=== PATIENT | female | born 1945 | race Caucasian/White ===

== ENCOUNTER 2019-12-10 12:42 | Inpatient (IN) | payer MEDICARE ==
[~2019-12-10] VITALS: Ht 165.1 cm; Wt 76.2 kg
--- NOTE | 2019-12-10 13:04 | NUR ---
PT BIB EMS FOR [facility]. PT HAS RIGHT TOTAL KNEE THIS AM W ABNORMAL EKG CHANGES, INVERTED T WAVE. PT DENIES CP OR SOB, NO COUGH. DENIES N/V. PT NOT IN RESP DISTRESS. PT RIGHT KNEE WRAPPED, ELEVATED, ICE APPLIED. UX DEVELOPER APPLIED. VSS, EKG DONE HX OF HTN AND ASTHMA,
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
[2019-12-10 14:05] LABS: BASOPHILS # (AUTO) 0.01 x10^3/uL (0-0.1); BASOPHILS % (AUTO) 0 % (0-1); EOSINOPHILS # (AUTO) 0.01 x10^3/uL (0-0.4); EOSINOPHILS % (AUTO) 0 % (1-7); LYMPHOCYTES # (AUTO) 0.36 x10^3/uL (1-3.4); LYMPHOCYTES % (AUTO) 5 % (22-44); MD NO; MEAN CORPUSCULAR HEMOGLOBIN 32.8 pg (27.0-34.8); MEAN CORPUSCULAR HGB CONC 33.8 g/dL (32.4-35.8); MEAN CORPUSCULAR VOLUME 97.2 fL (80-100); MEAN PLATELET VOLUME 7.7 fL (7.4-10.4); MONOCYTES # (AUTO) 0.11 x10^3/uL (0.2-0.8); MONOCYTES % (AUTO) 1 % (2-9); NEUTROPHILS # (AUTO) 7.29 x10^3/uL (1.8-6.8); NEUTROPHILS % (AUTO) 94 % (42-75); PLATELET COUNT 208 x10^3/uL (130-400); RED BLOOD COUNT 2.98 x10^6/uL (3.82-5.3); RED CELL DISTRIBUTION WIDTH 14.4 % (9.6-15.2)
[2019-12-10 14:12] LABS: CHLORIDE 108 mmol/L (98-107)
[2019-12-10 14:26] LABS: ANION GAP 6 mmol/L (5-15); CALCIUM 8.1 mg/dL (8.5-10.1); CREATININE 0.77 mg/dL (0.55-1.02)
[2019-12-10 14:29] LABS: TROPONIN I < 0.015 ng/mL (0.000-0.045)
[2019-12-10] MEDS ORDERED: OXYcodone/APAP 5/325MG TABLET ONE (15:48)
--- NOTE | 2019-12-10 15:51 | NUR ---
MEDICATED FOR PAIN, REPOSITIONED FOR COMFORT. VSS.
[2019-12-10] MEDS ORDERED: OXYcodone/APAP 5/325MG TABLET PO ONE (16:00)
[2019-12-10 17:34] VITALS: BP 130/79
[2019-12-10] MEDS ORDERED: POTA10TA5 PO (17:52)
[2019-12-10] MEDS ORDERED: METO50TA6 PO (17:58)
[2019-12-10] MEDS ORDERED: ALPR0.5T PO (17:58)
[2019-12-10] MEDS ORDERED: OMEP-110 PO (17:58)
[2019-12-10] MEDS ORDERED: MONT10TA11 PO (17:58)
[2019-12-10] MEDS ORDERED: SIMV10TA18 PO (17:58)
[2019-12-10] MEDS ORDERED: DICL-249 PO (17:58)
[2019-12-10] MEDS ORDERED: LORA10TA62 PO (17:58)
[2019-12-10] MEDS ORDERED: LOSA100T14 PO (17:58)
[2019-12-10] MEDS ORDERED: ESCI10TA PO (17:58)
[2019-12-10] MEDS ORDERED: ACETAMINOPHEN 325 MG TABLET PO PRN (18:30)
[2019-12-10 18:59] LABS: TROPONIN I < 0.015 ng/mL (0.000-0.045)
[2019-12-10] MEDS ORDERED: MAGNESIUM SULFATE PMX 4GM/100M 100 ML IV ONE (19:30)
[2019-12-10] MEDS ORDERED: SIMVASTATIN 10 MG TABLET PO SCH (21:00)
[2019-12-10] MEDS: DICLOFENAC SODIUM 75 MG TABLET.DR PO SCH (21:07)
[2019-12-10] MEDS: METOPROLOL TARTRATE 50 MG TAB PO SCH (21:07)
[2019-12-10] MEDS: POTASSIUM CHLORIDE 10 MEQ TABLET.ER PO SCH (21:07)
[2019-12-10] MEDS: morphine SULFATE 10 MG/ML, 1ML IVPush PRN (21:08)
[2019-12-10 21:25] VITALS: BP 149/53
[2019-12-11] MEDS: morphine SULFATE 10 MG/ML, 1ML IVPush PRN ×2 (00:52→06:15)
[2019-12-11 00:53] VITALS: BP 116/68
[2019-12-11 01:49] LABS: TROPONIN I < 0.015 ng/mL (0.000-0.045)
[2019-12-11 05:10] LABS: BASOPHILS % (AUTO) 0 % (0-1); EOSINOPHILS % (AUTO) 0 % (1-7); LYMPHOCYTES # (AUTO) 0.62 x10^3/uL (1-3.4); LYMPHOCYTES % (AUTO) 6 % (22-44); MD NO; MEAN CORPUSCULAR VOLUME 96.9 fL (80-100); MONOCYTES # (AUTO) 0.66 x10^3/uL (0.2-0.8); MONOCYTES % (AUTO) 6 % (2-9); NEUTROPHILS # (AUTO) 9.53 x10^3/uL (1.8-6.8); NEUTROPHILS % (AUTO) 88 % (42-75); PLATELET COUNT 193 x10^3/uL (130-400); RED BLOOD COUNT 2.78 x10^6/uL (3.82-5.3); RED CELL DISTRIBUTION WIDTH 14.1 % (9.6-15.2)
[2019-12-11 05:18] LABS: CHLORIDE 105 mmol/L (98-107)
[2019-12-11 05:31] LABS: ALANINE AMINOTRANSFERASE 21 U/L (12-78); ALBUMIN 2.8 g/dL (3.4-5.0); ALKALINE PHOSPHATASE 40 U/L (45-117); ANION GAP 8 mmol/L (5-15); BILIRUBIN,TOTAL 0.3 mg/dL (0.2-1.0); CALCIUM 8.1 mg/dL (8.5-10.1); CHOL/HDL RATIO 2.9; CHOLESTEROL, TOTAL 153 mg/dL (140-239); CREATININE 0.73 mg/dL (0.55-1.02); HDL CHOL % 35 % (28-40); HDL CHOLESTEROL (DIRECT) 53 mg/dL (40-60); LDL CHOLESTEROL,CALCULATED 81 mg/dL (54-169); LDL/HDL RATIO 1.5 (0.5-3.0); TOTAL PROTEIN 5.8 g/dL (6.4-8.2); TRIGLYCERIDES 94 mg/dL (50-200); VLDL CHOLESTEROL 19 mg/dL (0-25)
[2019-12-11] MEDS ORDERED: OMEPRAZOLE 20 MG CAPSULE.DR PO SCH (07:00)
[2019-12-11] MEDS ORDERED: REGADENOSON 0.4 MG/5 ML SYRINGE ONE (08:08)
[2019-12-11] MEDS ORDERED: ESCITALOPRAM 10MG TABLET PO SCH (09:00)
[2019-12-11] MEDS ORDERED: MONTELUKAST 10 MG TABLET PO SCH (09:00)
[2019-12-11] MEDS ORDERED: LOSARTAN 100 MG TAB PO SCH (09:00)
[2019-12-11] MEDS: METOPROLOL TARTRATE 50 MG TAB PO SCH (09:51)
[2019-12-11] MEDS: DICLOFENAC SODIUM 75 MG TABLET.DR PO SCH (09:51)
[2019-12-11] MEDS: POTASSIUM CHLORIDE 10 MEQ TABLET.ER PO SCH (09:52)
[2019-12-11 09:56] VITALS: BP 111/67
[2019-12-11] MEDS ORDERED: OXYcodone IR 5MG TABLET ONE (11:13)
[2019-12-11] MEDS ORDERED: OXYcodone 5 MG/5 ML ORAL.SOL UDC PO PRN (11:30)
[2019-12-11] MEDS ORDERED: ASPIRIN 81 MG TABLET CHEW PO SCH (11:30)
[2019-12-11] MEDS ORDERED: DOCUSATE 100 MG CAPSULE PO SCH (11:30)
[2019-12-11] MEDS ORDERED: OXYcodone IR 5MG TABLET PO PRN (12:30)
== END 2019-12-11 16:04 | disposition home or self-care (01) | DRG 205 ==
LOC: ED 14:59 → EDIP 15:21 → 5SO 16:46 → DCLOUNGE 12-11 16:02
PROVIDERS: ADMIT Internal Medicine; ATTEND Internal Medicine
DX: J95.89 Other postprocedural complications and disorders of respiratory system, not elsewhere classified (principal); J96.01 Acute respiratory failure with hypoxia; J45.909 Unspecified asthma, uncomplicated; G47.33 Obstructive sleep apnea (adult) (pediatric); E78.5 Hyperlipidemia, unspecified; I10 Essential (primary) hypertension; M19.90 Unspecified osteoarthritis, unspecified site; F43.10 Post-traumatic stress disorder, unspecified; Z96.642 Presence of left artificial hip joint; Y83.9 Surgical procedure, unspecified as the cause of abnormal reaction of the patient, or of later complication, without mention of misadventure at the time of the procedure; Z90.49 Acquired absence of other specified parts of digestive tract; Z98.51 Tubal ligation status; Z80.3 Family history of malignant neoplasm of breast; Z80.1 Family history of malignant neoplasm of trachea, bronchus and lung; Z88.2 Allergy status to sulfonamides; Z99.81 Dependence on supplemental oxygen
CPT/HCPCS: 36415; 71045; 78452; 80048; 80053; 80061; 82040; 83735; 84100; 84439; 84443; 84484; 85025; 93005; 93017; 99285; G0378; J2785; A9502; C9898; J2270; J3475